=== PATIENT | male | born 1945 | race Caucasian/White ===

== ENCOUNTER → 2016-12-19 | Outpatient (REF) | payer MEDICARE ==
[~2016-12-19] MED LIST: ALEVE PO; ASPI81CH21 PO; LIPI20TA PO; NEXI40GR PO; PERCOCET PO; PRO AIR INH; TYLE325T5 PO; WARF05TA PO
[2016-12-19 13:39] LABS: BASO # 0.1 K/mm3 (0.0-0.2); BASO % 0.9 % (0.0-1.0); EOS # 0.3 K/mm3 (0.0-0.50); EOS % 4.2 % (0.0-3.0); LARGE UNSTAINED CELL # 0.2 K/mm3 (0.0-0.4); LYMPH # 1.7 K/mm3 (1.5-4.5); LYMPH % 21.6 % (24.0-44.0); MEAN CORPUSCULAR HEMOGLOBIN 29.8 pg (27.0-33.0); MEAN CORPUSCULAR HGB CONC 32.6 g/dl (32.0-36.5); MEAN CORPUSCULAR VOLUME 91.2 fl (80.0-96.0); MONO # 0.4 K/mm3 (0.0-0.8); MONO % 4.4 % (0.0-5.0); NEUTROPHILS # 5.4 K/mm3 (1.8-7.7); NEUTROPHILS % 66.9 % (36.0-66.0); PLATELET COUNT, AUTOMATED 246 k/mm3 (150-450); RED CELL DISTRIBUTION WIDTH 13.1 % (11.5-14.5)
[2016-12-19 14:07] LABS: ALBUMIN 3.9 GM/DL (3.2-5.2); ALKALINE PHOSPHATASE 112 U/L (45-117); ALT/SGPT 22 U/L (12-78); ANION GAP 6 MEQ/L (8-16); AST/SGOT 17 U/L (15-37); BILIRUBIN,TOTAL 0.3 MG/DL (0.2-1.0); BLOOD UREA NITROGEN 19 MG/DL (7-18); CALCIUM LEVEL 8.6 MG/DL (8.8-10.2); CARBON DIOXIDE LEVEL 29 MEQ/L (21-32); CHLORIDE LEVEL 108 MEQ/L (98-107); CREATININE FOR GFR 0.87 MG/DL (0.70-1.30); FOLATE 11.2 NG/ML; GLOMERULAR FILTRATION RATE > 60.0 (>49); GLUCOSE, FASTING 108 MG/DL (80-110); POTASSIUM SERUM 4.5 MEQ/L (3.5-5.1); SODIUM LEVEL 143 MEQ/L (136-145); TOTAL PROTEIN 6.9 GM/DL (6.4-8.2); VITAMIN B12 LEVEL 839 PG/ML
[2016-12-19 14:31] LABS: ERYTHROCYTE SEDIMENTATION RATE 5 mm/hr (0-20)
[2016-12-20 11:33] LABS: ALBUMIN 4.08 GM/DL (3.29-5.55); ALBUMIN % 59.2 % (55.8-66.1); GAMMA GLOBULIN % 13.5 % (11.1-18.8)
[2016-12-22 00:07] LABS: VITAMIN E LEVEL 9.2 mg/L (5.3-17.5)
== END ==
LOC: M LABNEURO 12:54
PROVIDERS: ATTEND Psychiatry & Neurology Neurology
DX: G62.9 Polyneuropathy, unspecified (principal); R51 Headache

== ENCOUNTER 2017-01-25 11:55 | Emergency (ER) | payer MEDICARE ==
[~2017-01-25] VITALS: Ht 177.8 cm; Wt 77.1 kg
[2017-01-25] MEDS ORDERED: ONDANSETRON 4MG/2ML VIAL (J2405) IV ONE (14:15)
[2017-01-25] MEDS: MORPHINE 2 MG/ML 1ML SYRINGE IV PRN ×2 (14:41→16:06)
[2017-01-25] MEDS ORDERED: methylPREDNISolone INJ 125 MG/2 ML VIAL (J2930) IV ONE (14:45)
[2017-01-25 14:50] LABS: BASO # 0.1 K/mm3 (0.0-0.2); BASO % 0.7 % (0.0-1.0); EOS # 0.2 K/mm3 (0.0-0.50); EOS % 2.2 % (0.0-3.0); LARGE UNSTAINED CELL # 0.2 K/mm3 (0.0-0.4); LYMPH # 2.2 K/mm3 (1.5-4.5); LYMPH % 20.1 % (24.0-44.0); MEAN CORPUSCULAR HEMOGLOBIN 30.1 pg (27.0-33.0); MEAN CORPUSCULAR HGB CONC 33.5 g/dl (32.0-36.5); MEAN CORPUSCULAR VOLUME 89.9 fl (80.0-96.0); MONO # 0.4 K/mm3 (0.0-0.8); MONO % 3.9 % (0.0-5.0); NEUTROPHILS # 7.8 K/mm3 (1.8-7.7); NEUTROPHILS % 71.1 % (36.0-66.0); PLATELET COUNT, AUTOMATED 297 k/mm3 (150-450); RED CELL DISTRIBUTION WIDTH 13.4 % (11.5-14.5); WHITE BLOOD COUNT 10.9 K/mm3 (4.0-10.0)
[2017-01-25 15:06] LABS: ANION GAP 5 MEQ/L (8-16); BLOOD UREA NITROGEN 15 MG/DL (7-18); CALCIUM LEVEL 8.9 MG/DL (8.8-10.2); CARBON DIOXIDE LEVEL 32 MEQ/L (21-32); CHLORIDE LEVEL 105 MEQ/L (98-107); CREATININE FOR GFR 0.82 MG/DL (0.70-1.30); GLOMERULAR FILTRATION RATE > 60.0 (>49); GLUCOSE, FASTING 103 MG/DL (80-110); POTASSIUM SERUM 4.6 MEQ/L (3.5-5.1); SODIUM LEVEL 142 MEQ/L (136-145)
[2017-01-25 15:45] LABS: ERYTHROCYTE SEDIMENTATION RATE 3 mm/hr (0-20)
[2017-01-25] MEDS ORDERED: NORP10TA2 PO (17:04)
[2017-01-25] MEDS ORDERED: OXYC1TAB23 PO (17:15)
[2017-01-25 17:40] VITALS: BP 147/90
--- NOTE | 2017-01-26 12:24 | ECGEPIP ---
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
== END 2017-01-25 17:45 | disposition home or self-care (01) ==
LOC: M ED 14:08
DX: R51 Headache (principal); M54.2 Cervicalgia; M47.812 Spondylosis without myelopathy or radiculopathy, cervical region; I25.10 Atherosclerotic heart disease of native coronary artery without angina pectoris; I25.2 Old myocardial infarction; E78.9 Disorder of lipoprotein metabolism, unspecified; K21.9 Gastro-esophageal reflux disease without esophagitis; N42.9 Disorder of prostate, unspecified; M19.90 Unspecified osteoarthritis, unspecified site; F17.210 Nicotine dependence, cigarettes, uncomplicated; Z79.899 Other long term (current) drug therapy; Z79.82 Long term (current) use of aspirin; Z85.51 Personal history of malignant neoplasm of bladder
CPT/HCPCS: 80048; 82550; 82553; 84484; 85025; 85652; 93005; 93041; 96374; 96375; 96376; 99285; J2405; J2930

== ENCOUNTER 2017-02-03 12:32 | Observation (INO) | payer MEDICARE ==
[~2017-02-03] VITALS: Ht 177.8 cm; Wt 72.7 kg
[~2017-02-03 12:32] MED LIST changes: +NORP10TA2 PO; +OXYC1TAB23 PO
[2017-02-03] MEDS ORDERED: METOCLOPRAMIDE INJ 10MG/2ML VIAL (J2765) IV ONE (13:30)
[2017-02-03 14:15] LABS: BASO % 0.6 % (0.0-1.0); EOS # 0.3 K/mm3 (0.0-0.50); EOS % 3.5 % (0.0-3.0); LARGE UNSTAINED CELL # 0.3 K/mm3 (0.0-0.4); LARGE UNSTAINED CELL % 3.3 % (0.0-4.0); LYMPH % 25.4 % (24.0-44.0); MEAN CORPUSCULAR HEMOGLOBIN 29.8 pg (27.0-33.0); MEAN CORPUSCULAR HGB CONC 33.3 g/dl (32.0-36.5); MEAN CORPUSCULAR VOLUME 89.5 fl (80.0-96.0); MONO # 0.3 K/mm3 (0.0-0.8); MONO % 4.4 % (0.0-5.0); NEUTROPHILS # 4.9 K/mm3 (1.8-7.7); NEUTROPHILS % 62.8 % (36.0-66.0); PLATELET COUNT, AUTOMATED 255 k/mm3 (150-450); RED CELL DISTRIBUTION WIDTH 13.3 % (11.5-14.5); WHITE BLOOD COUNT 7.7 K/mm3 (4.0-10.0)
[2017-02-03 14:20] LABS: ANION GAP 7 MEQ/L (8-16); BLOOD UREA NITROGEN 17 MG/DL (7-18); CALCIUM LEVEL 8.2 MG/DL (8.8-10.2); CARBON DIOXIDE LEVEL 29 MEQ/L (21-32); CHLORIDE LEVEL 107 MEQ/L (98-107); CREATININE FOR GFR 0.87 MG/DL (0.70-1.30); GLOMERULAR FILTRATION RATE > 60.0 (>49); GLUCOSE, FASTING 95 MG/DL (80-110); POTASSIUM SERUM 4.1 MEQ/L (3.5-5.1); SODIUM LEVEL 143 MEQ/L (136-145)
[2017-02-03] MEDS ORDERED: PROA1AER INH (14:35)
[2017-02-03] MEDS ORDERED: PERC5TAB6 PO (14:35)
[2017-02-03] MEDS ORDERED: ROSU10TA PO (14:35)
[2017-02-03] MEDS ORDERED: ASPI81TA85 PO (14:35)
[2017-02-03] MEDS ORDERED: ALEV220T22 PO (14:35)
[2017-02-03] MEDS ORDERED: NEXI40CA PO (14:35)
[2017-02-03] MEDS ORDERED: ASPIRIN 325 MG TAB PO ONE (15:00)
[2017-02-03] MEDS ORDERED: ACETAMINOPHEN TAB 650MG DOSE (2X325MG) PO PRN (16:00)
[2017-02-03] MEDS ORDERED: PERCOCET 5MG/325MG TAB PO PRN (16:00)
[2017-02-03] MEDS ORDERED: MORPHINE 2 MG/ML 1ML SYRINGE IV PRN (16:00)
[2017-02-03] MEDS ORDERED: ONDANSETRON 4MG/2ML VIAL (J2405) IV PRN (16:00)
[2017-02-03] MEDS ORDERED: ALBUTEROL 90 MCG/ACT 8GM HFA INHALER INH PRN (16:00)
[2017-02-03] MEDS ORDERED: ONDANSETRON 4 MG TAB (S0181) PO PRN (16:00)
[2017-02-03] MEDS ORDERED: LORazepam 2 MG/ML VIAL (J2060) IV ONE (17:00)
--- NOTE | 2017-02-03 17:12 | HPEPDOC ---
Medical History and Physical Date of Admission Feb 03, 2017 at 15:54 History and Physical HISTORY AND PHYSICAL Date of admission: 02/03/2017 PCP: Located in [place] Chief complaint: Pain in his right neck that extends into his head, as well as right arm numbness and tingling HPI: 71-year-old male with osteoarthritis, CAD and history of MA, cervicalgia, COPD, GERD, hyperlipidemia, bladder and prostate cancer who presented to the ER after experiencing right arm numbness and tingling last night. He states that for the last couple of months, he has had pain in his right neck that extends up into his head and seems to wrap around to both sides of his head. He states he has been seen Dr. Mejia about this and has received several injections which sound like they may be occipital nerve injections, and has received no improvement from these injections. Last night, he states that he had some numbness and tingling in his right arm and right face, but this has now resolved. He states that when he lays still on his back, he has some relief of the pain in his neck, but whenever he stands up, it gets worse and it also makes him dizzy when he stands up. Past medical history: osteoarthritis, CAD and history of MA, cervicalgia, COPD, GERD, hyperlipidemia, bladder and prostate cancer Past surgical history: Bilateral knee replacement, laminectomy, left rotator cuff repair, bladder and prostate surgery that sounds like it might of been a TURP Family history: Lung cancer Social history: The patient currently lives with his . He quit drinking approximately 10 years ago. He currently smokes about half a pack per day. Allergies: No known drug allergies Review of systems: General: Positive for chills. Negative for fever Eyes: Positive for vision changes and ocular discharge ENT: Negative for sore throat and nose bleed Cardiovascular: Negative for chest pain and palpitations Respiratory: Positive for chronic cough and chronic shortness of breath GI: Positive for nausea. Negative for vomiting, diarrhea, constipation Musculoskeletal: Positive for neck pain. Negative for back pain Skin: Negative for rash Neuro: As to for headache, dizziness, numbness, tingling Psych: Positive for depression. Negative for suicidal ideation Endocrine: Negative for polyuria : Negative for dysuria Heme: Negative for bruising and bleeding Home meds: See below Physical exam: Vital signs: Vital Sign - Last 24 Hours 3/12/17 3/12/17 12:50 12:53 Temp 98.5 Pulse 58 Resp 18 B/P 197/88 168/80 Pulse Ox 99 O2 Delivery Room Air Gen.: awake, alert, no acute distress Eyes: Extraocular movements intact, normal sclera ENT: Moist mucous membranes Cardiovascular: RRR, no murmurs rubs or gallops Lungs: clear to auscultation bilaterally, no rales, rhonchi, or wheeze Abdomen: Soft, NT/ND, normal BS Musculoskeletal: normal range of motion Extremities: No peripheral edema Neuro: alert and oriented 3, normal speech, no focal deficits, no facial droop , no arm drift Psych: tearful Labs and radiology: See below CBC and BMP are unremarkable CT of the head shows a small low-density area in the left parietal region and is unable to rule out infarct CT of the C-spine shows only chronic changes Assessment and plan: 71-year-old male with osteoarthritis, CAD and history of MA, cervicalgia, COPD, GERD, hyperlipidemia, bladder and prostate cancer who presented to the ER after experiencing right arm numbness and tingling last night. He is admitted with cervicalgia, and right upper extremity paresthesias. 1. Right upper extremity paresthesias: CT of the head does have concern for an area of low density that may represent CVA. We will complete a CVA workup for the patient with MRI of the brain, as well as MRA of the neck, echo, and lipid panel. The patient will be monitored on telemetry and started on a full aspirin , as he was previously taking a baby aspirin. I have spoken to Dr. Mejia, he states that if the patient has indeed had a stroke on MRI, he'll be happy to see the patient in consultation. The patient will be continued on his home Crestor. 2. Cervicalgia: This is been an ongoing issue for the patient. He had an appointment to establish with Dr. Herring later this week, Dr. Herring is graciously agreed to see the patient in consultation tomorrow. Symptomatic pain control. 3. COPD: Continue as needed albuterol. 4. GERD: Continue home PPI. 5. Hyperlipidemia: Continue home Crestor. 6. Bladder and prostate cancer: The patient currently follows with the doctor in [place] for this. 7. CAD and history of MA: Continue the patient on aspirin and a statin. The patient should discuss with his primary care physician potentially adding on a beta antonia. DVT prophylaxis: Lovenox Dispo: Place in observation status on the service of Dr. Crespo CODE STATUS: Full code Vital Signs see above Laboratory Data Labs 24H Laboratory Tests 2 02/03/17 13:52: Anion Gap 7L, White Blood Count 7.7, Red Blood Count 5.21, Hemoglobin 15.5, Hematocrit 46.6, Mean Corpuscular Volume 89.5, Mean Corpuscular Hemoglobin 29.8 , Mean Corpuscular Hemoglobin Concent 33.3, Red Cell Distribution Width 13.3, Platelet Count 255, Neutrophils (%) (Auto) 62.8, Lymphocytes (%) (Auto) 25.4, Monocytes (%) (Auto) 4.4, Eosinophils (%) (Auto) 3.5H, Basophils (%) (Auto) 0.6 , Neutrophils # (Auto) 4.9, Lymphocytes # (Auto) 2.0, Monocytes # (Auto) 0.3, Eosinophils # (Auto) 0.3, Basophils # (Auto) 0.0, Blood Urea Nitrogen 17, Creatinine 0.87, Sodium Level 143, Potassium Level 4.1, Chloride Level 107, Carbon Dioxide Level 29, Calcium Level 8.2L, Glomerular Filtration Rate > 60.0, Large Unclassified Cells # 0.3, Large Unclassified Cells % 3.3 CBC/BMP Laboratory Tests 02/03/17 13:52 Calcium Level 8.2 L, Red Blood Count 5.21, Mean Corpuscular Volume 89.5, Mean Corpuscular Hemoglobin 29.8, Mean Corpuscular Hemoglobin Concent 33.3, Red Cell Distribution Width 13.3, Neutrophils (%) (Auto) 62.8, Lymphocytes (%) (Auto) 25.4, Monocytes (%) (Auto) 4.4, Eosinophils (%) (Auto) 3.5 H, Basophils (%) ( Auto) 0.6, Neutrophils # (Auto) 4.9, Lymphocytes # (Auto) 2.0, Monocytes # (Auto ) 0.3, Eosinophils # (Auto) 0.3, Basophils # (Auto) 0.0 Home Medications Scheduled Aspirin (Aspir-81) 81 Mg Tab 81 MG PO DAILY Esomeprazole Magnesium Trihydr (Nexium) 40 Mg Cap 40 MG PO ACS Rosuvastatin (Crestor) 10 Mg Tab 10 MG PO QHS Scheduled PRN (Aleve Arthritis) 220 Mg Tab 220 MG PO PRN PRN PRN PAIN Albuterol Sulfate (Proair Hfa) 108 Mcg/Act Aer 2 PUFF INH Q4H PRN PRN SHORTNESS OF BREATH Oxycodone/Acetaminophen (Percocet 5-325 mg) 1 Tab Tab 1 TAB PO Q6H PRN PRN PAIN Allergies Coded Allergies: No Known Allergies (Verified Allergy, Unknown, 02/15/11) VANIA FORD Feb 03, 2017 17:12
[2017-02-03] MEDS ORDERED: PANTOPRAZOLE 40MG TAB (PROTONIX) PO SCH (17:30)
--- NOTE | 2017-02-03 18:30 | REPUSA ---
CLINICAL HISTORY: Headaches TECHNIQUE: Three dimensional vofp-wf-dycoqi angiography is performed of the [place]. The babita dy was performed without IV contrast agent. FINDINGS: The supraclinoid portions of the internal carotid arteries are of normal shape. The normal bifurcation is seen. The middle cerebral arteries are unremarkable in appearance. The posterior circu lation is visualized and shows no evidence of occlusion or aneurysm formation. The basilar tip is see n and shows no aneurysm formation. There is no evidence of beading to suggest vasculitis. IMPRESSION: MRA of the [place] is within normal limits. Thank you for your kind referral of this patient.
--- NOTE | 2017-02-03 18:30 | REPUSA ---
CLINICAL HISTORY: Headaches. CVA. TECHNIQUE: MRI of the brain was performed without administration of intravenous contrast material. T1 spine echo, T2 fast spin echo,DWI and FLAIR sequences were obtained in sagittal, axial and coronal p lanes. FINDINGS: The sella and parasellar regions are unremarkable in appearance. The corpus callosum and cerebellar t onsils are of normal configuration and position. There are no intra or extra-axial collections. There is no mass effect or midline shift. There is no evidence of hematoma formation. There is no hydrocep halus. There is no restricted diffusion. The brain stem shows no mass effects, infarcts or hemorrhage. There are no cerebellopontine tumors. T he acoustic nerves are symmetrical. No cerebellar intra-axial pathology delineated. The fourth ventri linnea and aqueduct are normal. No abnormalities of the optic nerves are identified. No dural or subdura l masses or collections are detected. There is evidence for generalized symmetrical dilatation of the ventricles and cortical sulci consist ent with parenchymal atrophy. There are bilateral periventricular and subcortical T2 and FLAIR hyperintensities compatible with chr onic white matter ischemic disease. The visualized arterial structures demonstrate normal appearing flow voids. The VII and VIII nerve bu ndles are visualized and are unremarkable in appearance. Mucosal thickening is seen involving all sinuses compatible with chronic sinusitis. IMPRESSION: 1. Generalized age-appropriate parenchymal atrophy. 2. Bilateral periventricular and subcortical white matter chronic ischemic changes. 3. Chronic pansinusitis. 4. No evidence of acute intracranial pathology. Thank you for your kind referral of this patient.
[2017-02-03 20:00] VITALS: BP 129/72
--- NOTE | 2017-02-03 20:30 | REPUSA ---
HISTORY: CVA TECHNIQUE: Magnetic resonance angiography of the neck was performed at 1.5T with 2-D axial time-of-fl ight images and 3-D coronal [id number]-[id number] images. Images are retrospectively targeted and reformatte d in three dimensions according to standard protocol. Source images were reviewed. FINDINGS: NECK - There is normal anatomy. The left vertebral artery is dominant. Atherosclerotic changes are present at both common carotid bifurcations and proximal ICAs withh mode rate to severe stenosis estimated 50-70%. Consider correlation with carotid ultrasound. Otherwise unremarkable study. IMPRESSION: Atherosclerotic changes are present at both common carotid bifurcations and proximal ICAs withh mode rate to severe stenosis estimated 50-70%. Consider correlation with carotid ultrasound. Thank you for your kind referral of this patient
[2017-02-03] MEDS: KETOROLAC TROMETHAMINE 10 MG TAB PO PRN (20:40)
[2017-02-03] MEDS ORDERED: ROSUVASTATIN 10 MG TAB (CRESTOR) PO SCH (21:00)
[2017-02-04] VITALS: BP 144/63
[2017-02-04] MEDS ORDERED: SLF 3 ML SYR IV PRN (03:45)
[2017-02-04 04:00] VITALS: BP 118/56
[2017-02-04 05:33] LABS: BASO % 0.8 % (0.0-1.0); EOS # 0.4 K/mm3 (0.0-0.50); EOS % 6.6 % (0.0-3.0); LARGE UNSTAINED CELL # 0.2 K/mm3 (0.0-0.4); LYMPH # 2.5 K/mm3 (1.5-4.5); LYMPH % 41.2 % (24.0-44.0); MEAN CORPUSCULAR HEMOGLOBIN 30.8 pg (27.0-33.0); MEAN CORPUSCULAR HGB CONC 34.4 g/dl (32.0-36.5); MEAN CORPUSCULAR VOLUME 89.5 fl (80.0-96.0); MONO # 0.5 K/mm3 (0.0-0.8); MONO % 7.9 % (0.0-5.0); NEUTROPHILS # 2.4 K/mm3 (1.8-7.7); NEUTROPHILS % 39.5 % (36.0-66.0); PLATELET COUNT, AUTOMATED 237 k/mm3 (150-450); RED CELL DISTRIBUTION WIDTH 13.3 % (11.5-14.5)
[2017-02-04 05:54] LABS: ANION GAP 7 MEQ/L (8-16); BLOOD UREA NITROGEN 23 MG/DL (7-18); CALCIUM LEVEL 7.9 MG/DL (8.8-10.2); CARBON DIOXIDE LEVEL 29 MEQ/L (21-32); CHLORIDE LEVEL 107 MEQ/L (98-107); CHOLESTEROL LEVEL 142 MG/DL (<200); GLOMERULAR FILTRATION RATE > 60.0 (>49); GLUCOSE, FASTING 106 MG/DL (80-110); MAGNESIUM LEVEL 2.5 MG/DL (1.8-2.4); POTASSIUM SERUM 4.2 MEQ/L (3.5-5.1); SODIUM LEVEL 143 MEQ/L (136-145); TRIGLYCERIDES LEVEL 137 MG/DL (<150)
[2017-02-04] MEDS ORDERED: SLF 3 ML SYR IV SCH (06:00)
--- NOTE | 2017-02-04 06:45 | REP ---
Pain after trauma, rule out intracranial bleed. Priors: None. The ventricles and sulci are within normal limits. There are no extra-axial fluid collections. There is no shift of the midline structures. In the left parietal lobe deep cerebral white matter, there is a very subtle potential focal area of low density measuring 1 cm. The deep white matter is otherwise unremarkable. The posterior fossa is within normal limits. The cerebellopontine angles, sella turcica and paracavernous structures are within normal limits. The imaged paranasal sinuses show ethmoid bulla mucosal thickening and subtle mucosal thickening in the frontal sinuses and frontoethmoid recess bilaterally. The mastoid air cells are clear. IMPRESSION: 1. Small focal area of low density in the left deep white matter as described above possibly representing a small nonhemorrhagic infarction. This needs to be correlated clinically. There are no changes that would be consistent with an acute intracranial hemorrhage. 2. Paranasal sinus mucosal thickening as described above. Signed by Gideon Vang DO 02/04/2017 12:05 P
--- NOTE | 2017-02-04 06:48 | REP ---
Pain after trauma. Priors: None. Contiguous axial images were obtained with sagittal and coronal reconstructions. There is severe disc space narrowing at C5-6 with heavy anterior and posterior osteophytic ridging. Moderate to severe disc space narrowing is seen at one level below and there is more mild to moderate disc space narrowing at all other levels. The facet joints are well aligned bilaterally. Hypertrophic degenerative facet and uncovertebral joint changes are present at every level bilaterally. Vertebral body height and alignment is within normal limits. There is evidence of central canal encroachment due to posterior spondylotic baring at the C5-6 and C6-7 levels. Mild foraminal narrowing is also seen at those levels. There is no evidence of an acute cervical spine fracture. The imaged lung mckeon show chronic changes. There is no evidence of abnormal paraspinal soft tissue swelling. IMPRESSION: Chronic changes as described above. Signed by Gideon Vang DO 02/04/2017 12:05 P
[2017-02-04 08:00] VITALS: BP 140/64
[2017-02-04] MEDS ORDERED: ASPIRIN 325 MG TAB PO SCH (09:00)
[2017-02-04] MEDS ORDERED: ENOXAPARIN 40 MG/0.4 ML SYRINGE (J1650) SC SCH (09:00)
[2017-02-04 11:00] VITALS: BP 128/67
[2017-02-04 11:03] VITALS: BP 113/73
[2017-02-04 11:06] VITALS: BP 119/59
[2017-02-04] MEDS: KETOROLAC TROMETHAMINE 10 MG TAB PO PRN (11:24)
--- NOTE | 2017-02-05 17:34 | ECHO ---
DATE OF PROCEDURE: 02/04/2017 AGE: 71 GENDER: Male HEIGHT: 70 inches WEIGHT: 160 pounds BODY SURFACE AREA: 1.9 m2 PATIENT LOCATION: Inpatient, room 3229 REFERRING PHYSICIAN: Dr. Marissa Costa INDICATION: Transient ischemic attack (TIA). 2-D MEASUREMENTS: RV: 3.3 cm LV: 4.6 cm Septum: 0.9 cm Posterior wall: 0.9 cm Aortic root: 3.1 cm LA: 3.6 cm LVEF: 70% DOPPLER MEASUREMENTS: AV: 1.9 m/s LVOT: 1.2 m/s LVOT diameter: 2.2 cm MV-E: 65, A: 59, EA ratio: 1.1 Early mitral deceleration time: 275 ms E prime: 6.9, A prime: 7.8, EE prime ratio: 9.3 PV: 1.0 m/s Pulmonary artery acceleration time: 160 ms PASP: 27 mmHg IVC: 1.2 cm COMMENTS: Sinus bradycardia in the 50s per minute. No intraventricular conduction disturbance. Normal cardiac chamber sizes and wall thickness. On real-time imaging from the parasternal and apical projections wall motion was symmetrical and hyperkinetic. Slightly thickened mitral annulus but normal leaflet thickness and excursion with no posterior systolic buckling. Three equal size aortic cusps with moderate asymmetrical thickening of the noncoronary cusp, but still adequate cusp separation. Normal aortic root size. No separate intracardiac mass or pericardial effusion. Color flow Doppler study taken from the parasternal and apical projection showed trace mitral and very mild tricuspid, but no aortic insufficiency. Guided continuous wave Doppler of his aortic valve showed a peak systolic velocity upper limits of normal against any significant degree of LV outflow tract obstruction. Pulsed and continuous wave Doppler of his LV inflow tract taken from the apical four-chamber projection showed normal diastolic filling velocities against mitral stenosis. The filling pattern was also normal against LV diastolic dysfunction. Pulsed and continuous wave Doppler of his pulmonary trunk showed a normal peak systolic velocity against RV outflow tract obstruction. His pulmonary artery acceleration time was normal against an elevated pulmonary vascular resistance. We attempted to further estimate his right ventricular systolic pressure using guided continuous wave Doppler of his tricuspid valve, but could not get a clear spectral envelope. His inferior vena cava was of normal size with normal respiratory collapse against an elevated central venous pressure. CONCLUSIONS: Asymmetrical thickening of the noncoronary cusp of the aortic valve without functional valvular abnormalitiy. No pedunculated mass, but could not rule out a sessile vegetation. Otherwise, normal-appearing echocardiogram / Doppler study. If a cardiac source of embolic material is seriously suspect, we would recommend a complete blood count, sedimentation rate, two sets of blood cultures by 2 hours and a transesophageal echocardiogram. MTDD
== END 2017-02-04 12:43 | disposition home or self-care (01) ==
LOC: M ED 14:11 → M ED INP 15:54 → M PCU 19:28
PROVIDERS: ADMIT Hospitalist; ATTEND General Practice
DX: R20.2 Paresthesia of skin (principal); M54.2 Cervicalgia; G45.9 Transient cerebral ischemic attack, unspecified; I25.2 Old myocardial infarction; I25.10 Atherosclerotic heart disease of native coronary artery without angina pectoris; K21.9 Gastro-esophageal reflux disease without esophagitis; E78.4 Other hyperlipidemia; Z85.46 Personal history of malignant neoplasm of prostate; F17.210 Nicotine dependence, cigarettes, uncomplicated; Z79.02 Long term (current) use of antithrombotics/antiplatelets; Z79.82 Long term (current) use of aspirin; Z79.899 Other long term (current) drug therapy
CPT/HCPCS: 36415; 70450; 70544; 70547; 70551; 72125; 80048; 80061; 83735; 85025; 93306; 96372; 97161; 97165; 99284; G0378; J1650; J2060; J2765

== ENCOUNTER → 2017-02-12 | Outpatient (CLI) | payer MEDICARE ==
[~2017-02-12] MED LIST changes: +ALEV220T22 PO; +ASPI81TA85 PO; +NEXI40CA PO; +PERC5TAB6 PO; +PROA1AER INH; +ROSU10TA PO
--- NOTE | 2017-02-12 11:33 | REP ---
Clinical: Spondylosis. Technique: AP, lateral, bilateral oblique, flexion/extension views of the lumbar spine. Comparison: 02/16/2011. Findings: The patient is noted to be status post X-stop device at the L4-5 level. Advanced multilevel degenerative changes include osteophytosis, endplate sclerosis/irregularity, and disc space narrowing along with hypertrophic facet changes. There is no evidence for acute fracture / compression injury or subluxation. Impression: Advanced multilevel degenerative disc osteophyte complexes. Signed by Andre Horta MD 02/12/2017 11:24 A
--- NOTE | 2017-02-12 11:34 | REP ---
Clinical: Cervical spondylosis. Technique: AP, lateral, flexion/extension, swimmer's, bilateral oblique and open mouth views. Findings: Advanced multilevel degenerative disc osteophyte complexes are noted predominantly involving the C5-6, C6-7, and C7-T1 levels. Findings include osteophytosis, endplate sclerosis/irregularity, disc space narrowing and hypertrophic facet changes with narrowing to the foramina on oblique views. Open-mouth view demonstrates normal C1-C2 articulation and odontoid process. There is no evidence for acute fracture / compression injury or subluxation. Impression: Advanced multilevel degenerative disc osteophyte complexes. Signed by Andre Horta MD 02/12/2017 11:26 A
== END ==
LOC: M RAD 10:51
PROVIDERS: ATTEND Neurological Surgery
DX: M47.892 Other spondylosis, cervical region (principal); M47.896 Other spondylosis, lumbar region

== ENCOUNTER → 2018-04-07 | Outpatient (CLI) | payer MEDICARE | LOC: M PLARAD 08:34 | DX: M19.011 Primary osteoarthritis, right shoulder (principal) | CPT/HCPCS: 73221 ==

== ENCOUNTER → 2020-06-21 | Outpatient (CLI) | payer MEDICARE ==
[~2020-06-21] MED LIST changes: -ASPI81TA85 PO; +ASPI81TA86 PO; +CRES10TA PO; +LIDOCAINE 1% MDV 20ML VIAL As Ordered ONE; +PERC5TAB12 PO; -PERC5TAB6 PO; -PERCOCET PO; -PROA1AER INH; +PROAAER10 INH; -ROSU10TA PO
--- NOTE | 2020-08-08 10:30 | REP ---
FOCUSED LEFT CALF ULTRASOUND: HISTORY: Localized swelling, mass and lump left lower extremity. Pre-scan imaging for anticipated ultrasound-guided aspiration. FINDINGS: There is a complex fluid collection in the myofascial compartment of the left medial calf measuring 12.7 x 2.2 x 3.5 cm. Ultrasound guidance will be utilized for aspiration. IMPRESSION: Elongate complex fluid collection in the left medial calf 12.7 cm in greatest diameter. MTDD
--- NOTE | 2020-08-08 10:33 | REP ---
LEFT CALF FLUID ASPIRATION: The procedure was performed under the direct supervision of Dr. Koch. The risks and benefits of the procedure were explained to the patient and informed consent was obtained. PROCEDURE: The left calf fluid collection was localized using ultrasound guidance. The skin was prepped and draped in a sterile fashion. 1% lidocaine was used as a local anesthetic. Using ultrasound guidance, a 5 [place] Skater Centesis catheter was inserted. 1 cc of dark red color fluid was withdrawn and sent to the lab for analysis. The patient tolerated the procedure well and there were no immediate complications. After the appropriate amount of monitored convalescence, the patient was discharged from the department. SAMUEL
== END ==
LOC: M IRPRO 11:50
PROVIDERS: ATTEND Physician Assistant
DX: R22.42 Localized swelling, mass and lump, left lower limb (principal); Z96.652 Presence of left artificial knee joint; M79.605 Pain in left leg

== ENCOUNTER → 2020-07-21 | Outpatient (CLI) | payer MEDICARE ==
[~2020-07-21] MED LIST changes: -LIDOCAINE 1% MDV 20ML VIAL As Ordered ONE
--- NOTE | 2020-08-08 10:53 | REP ---
TRIPLE PHASE BONE SCAN OF THE KNEES REASON FOR EXAM: Assess knee prosthesis bilaterally. COMPARISON: Triple phase bone scan none. FINDINGS: After the intravenous administration of 21.9 mCi of Technetium-99m MDP, a triple phase bone scan of the knees was obtained. The flow portion of the examination shows increased activity in the right knee paraprosthetic region and more subtly in the left knee paraprosthetic region. Blood pool imaging shows further increased activity in the right knee paraprosthetic femoral component prosthesis and again increased activity left knee in the same fashion to a lesser degree. Three hour delayed scintigraphy shows increased radionuclide accumulation in the paraprosthetic location bilaterally, right greater than left, and in a fashion increased when compared to both the blood pool imaging and the flow portion of the exams. IMPRESSION: Triple phase bone scan finding consistent with the clinical diagnosis of prosthetic loosening. MTDD
== END ==
LOC: M RAD 07:57
PROVIDERS: ATTEND Physician Assistant
DX: Z96.652 Presence of left artificial knee joint (principal)
CPT/HCPCS: 78315; A9503